=== PATIENT | female | born 2000 | race Caucasian/White ===

== ENCOUNTER 2024-06-27 13:06 | Outpatient (AMB) | payer BC, SELFPAY ==
--- NOTE | 2024-06-27 13:25 | MHC.PC.OV ---
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 Intake Note: New patient visit Street Engineer Required: No Allergies amoxicillin Allergy (Mild, Verified 06/27/24 13:29) Hives Medication List - Last Reconciled 06/27/24 by Sandra Trammell PA-C No Known Home Meds Tobacco use date assessed: 06/27/24 Dental Screening Dental Screen Date: 06/27/24 Did you have a dental visit in the last 12 months?: Yes Did you have a dental problem in the last 6 months where you did not have access to dental care?: No Was dental information given to patient?: Patient has dentist HPI BEHAVIORAL SCIENTIST Establish Care / Anxiety HPI Details Patient is a 23-year-old female who presents today to establish care. She is transferring from pediatrics. Pysch: She has a hx of anxiety of sertraline but it made her feel like a zombie. No SI/HI. She has never been hospitalized for anxiety or depression before. She does want to treat her anxiety as it bothers her almost every day and does cause some depressive symptoms. Social Staff Worker: Does not follow with a printing sign machine operator. Has never had a Pap smear. She is currently sexually active with a male partner and uses condoms. Declines STD screening or OCPs She is working at her father's [employer]. She also has a lima retriever puppy that is keeping her active and busy. She lives with a roommate. Requests a referral to Dermatology today. [facility] Surgical History (Updated 06/27/24 @ 13:31 by Rosario Ohara CMA) No pertinent past surgical history Family History (Updated 06/27/24 @ 13:31 by Rosario Ohara CMA) Maternal Grandmother HTN (hypertension) Diabetes Lung cancer Heart disease Other FH: mental illness Substance abuse Social History Housing: House Patient Tobacco Use Status: Never used Tobacco e-Cigarette/Vaping Use: Never Used service: No Current occupational status: employed Current occupation: Customer service Current occupational exposures/hazards: No Cognitive needs: No Hearing needs: No Vision needs: No Questionnaire PHQ-9 Over the last 2 weeks, how often have you been bothered by any of the following problems? 1. Little interest or pleasure in doing things: several days 2. Feeling down, depressed, or hopeless: several days 3. Trouble falling or staying asleep, or sleeping too much: several days 4. Feeling tired or having little energy: several days 5. Poor appetite or overeating: more than half the days 6. Feeling bad about yourself - or that you are a failure or have let yourself or your family down: several days 7. Trouble concentrating on things, such as reading the newspaper or watching television: several days 8. Moving or speaking so slowly that other people could have noticed. Or the opposite - being so fidgety or restless that you have been moving around a lot more than usual: several days 9. Thoughts that you would be better off or of hurting yourself in some way: several days Total score: 10 Depression Screening Interpretation: Positive Depression Screening Done: Yes 22242 - PHQ-9 Billing: Yes Source: Developed by Drs. Donnell Pabon, Kourtney Escobar, Roman Daly and colleagues, with an educational melvin from [employer]. Thrive Questionnaire Date Thrive assessed: 06/24/24 I am a: Patient What is your living situation today?: I have a steady place to live Within the past 12 months, did the food you bought not last and you didn't have the money to get more?: Never true Within the past 12 months, did you worry whether your food would run out before you got money to buy more?: Never true Do you have trouble paying for medicines?: No Do you have trouble getting transportation to medical appointments?: No Do you have trouble paying your heating and electricity bill?: No Do you have trouble taking care of your child, family member or friend?: No Do you have trouble with day-to-day activities such as bathing, preparing meals, shopping, managing finances, etc.?: No Are you currently unemployed and looking for a job?: No Are you interested in more education?: I choose not to answer this question Please select the resources that you would like help with: None Currently or been in a relationship where the following occur: No concerns reported THRIVE Score: 0 AUDIT C Alcohol Use Questionnaire (AUDIT-C) 2. How many drinks containing alcohol do you have on a typical day when you are drinking?: 3 or 4 3. How often do you have six or more drinks on one occasion?: Less than monthly Total Score: 2 MACKENZIE-7 AMB Questionnaire MACKENZIE-7 Date MACKENZIE - 7 assessed: 06/27/24 Feeling nervous, anxious, or on edge: 3 = Nearly every day Not being able to stop or control worryin = More than half the days Worrying too much about different things: 2 = More than half the days Trouble relaxin = Several days Being so restless that it is hard to sit still: 1 = Several days Becoming easily annoyed or irritable: 1 = Several days Feeling afraid as if something awful might happen: 1 = Several days Total MACKENZIE-7 score (0-4 normal; 5-9 mild; 10-14 moderate; 15-21 severe): 11 Source: Developed by Drs. Donnell Pabon, Kourtney Escobar, Roman Daly and colleagues, with an educational melvin from [employer]. MACKENZIE-7 Assessment Billing MACKENZIE-7 Assessment Tool: MACKENZIE-7 Assessment 13747 Physical exam (Primary Care) Vital Signs: Last Vital Signs Pulse 94 06/27/24 13:32 Resp 14 06/27/24 13:32 BP 100/72 06/27/24 13:32 Pulse Ox 99 06/27/24 13:32 Oxygen Delivery Method Room Air 06/27/24 13:32 BMI result Body Mass Index 18.9 Tobacco/Smoking Status: Tobacco use Status Tobacco use date assessed 06/27/24 06/27/24 13:27 Patient Tobacco Use Status Never used Tobacco 06/27/24 13:27 e-Cigarette/Vaping Use Never Used 06/27/24 13:27 PHQ-9: PHQ-9 Score PHQ-9: Total score 10 06/27/24 13:27 Depression Screening Interpretation: Positive Thrive Assessment: Date of Thrive Assessment Date Thrive assessed 06/24/24 06/27/24 13:27 Currently or been in a relationship where the following occur: No concerns reported Const Orientation/consciousness: patient oriented x3 HENMT Ears: hearing grossly normal bilaterally Neck Thyroid: Thyroid normal Lymphatic: no lymphadenopathy noted Resp Auscultation: clear to auscultation bilaterally Cardio Rate: regular rate Rhythm: regular rhythm Heart sounds: S1 normal heart sound present and S2 normal heart sound present GI Inspection: Yes normal to inspection Palpation (GI): Soft to palpation and Other GI palpation findings present (nontender, no cva tenderness) Auscultation: normoactive bowel sounds Rectal Exam - Female: deferred Skin General skin exam: no rashes or lesions noted Neuro General: patient oriented x3, gait normal and no focal motor deficits Coding Level of Care Code New Pt Level 3 (44432) Diagnoses Generalized anxiety disorder F41.1 Additional Codes MACKENZIE-7 Assessment Billing - MACKENZIE-7 Assessment Tool: MACKENZIE-7 Assessment 04351 ([id number]) PHQ-9 - 62307 - PHQ-9 Billing: Yes ([id number]) Assessment & Plan Assessment & Plan (1) Generalized anxiety disorder: Code(s): F41.1 - Generalized anxiety disorder Category: Medical Plan: We will start Lexapro. Discussed risks and benefits and adverse effects of this medication. I will have her follow up in 3-4 weeks. Sooner if needed. Labs ordered. Referral to gynecology placed. Orders: Orders TSH reflex Free T4 Today F41.1 - Generalized anxiety disorder Comprehensive Winston. 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
[2024-06-27 13:32] VITALS: BP 100/72; PULSE 94; RESP 14; O2SAT 99; BMI 18.9
== END 2024-06-27 14:09 | disposition home or self-care (01) ==
PROVIDERS: PCP Physician Assistant; Visit Provider Physician Assistant
DX: F41.1 Generalized anxiety disorder (principal)

== ENCOUNTER → 2024-06-27 13:06 | Outpatient (BNVA) | payer BC, SELFPAY | PROVIDERS: PCP Physician Assistant; Visit Provider Physician Assistant | DX: F41.1 Generalized anxiety disorder (principal) | CPT/HCPCS: 96127 ==

== ENCOUNTER 2024-07-09 12:46 | Outpatient (AMB) | payer BC, SELFPAY ==
--- NOTE | 2024-07-09 12:48 | MHC.OFFVIS ---
Vital Signs 07/09/24 12:55 Height 5 ft 5.5 in Weight 116 lb BMI 19.0 BP 107/64 Blood Pressure Location Lt brachial Position Sitting Respiration 16 Pulse 87 Pulse Source Pulse Oximeter Temp 97.7 F Temp Source Oral Pulse Oximetry (%) 99 Oxygen Delivery Method Room Air Intake Visit Reasons: Flu symptoms, pt of [facility] Intake Note: patient here c/o flu symptoms for a couple days. Gm/Svp Global Publisher Business Required: No Allergies amoxicillin Allergy (Mild, Verified 07/09/24 12:54) Hives Medication List - Last Reconciled 07/09/24 by Diana Landry CNP No Known Home Meds Is last menstrual period known: Yes Last menstrual period: 06/25/24 Post menopausal: No Do you need a note to return to daycare/school/sports/work: No HPI Comments Details: 23-year-old female presents with complaints of cold and flu-like symptoms for the past 2 weeks. He symptoms included headaches and persistent cough. She has been taking otc cold and flu medications. Her symptoms have significantly improved and feels better today. Her only symptom today is intermittent cough with [id number] mucus. She denies constitutional symptoms. [facility] Surgical History (Updated 06/27/24 @ 13:31 by Rosario Ohara CMA) No pertinent past surgical history Family History (Updated 06/27/24 @ 13:31 by Rosario Ohara CMA) Maternal Grandmother HTN (hypertension) Diabetes Lung cancer Heart disease Other FH: mental illness Substance abuse Social History Housing: House Patient Tobacco Use Status: Never used Tobacco e-Cigarette/Vaping Use: Never Used service: No Current occupational status: employed Current occupation: Customer service Current occupational exposures/hazards: No Cognitive needs: No Hearing needs: No Vision needs: No Female Reproductive History Menstrual Date of last menstrual period: 06/25/24 Review of Systems Const Details: Const Denies chills, Denies fatigue, Denies fever(s), Denies headache(s) and Denies weakness ENT Denies dizziness and Denies headache(s) Card Denies chest pain, Denies lightheadedness, Denies dyspnea and Denies other (Palpitations) Resp Reports cough, Denies dyspnea, Denies wheezing and Denies other ( shortness of breath) GI Denies abdominal pain, Denies melena, Denies hematochezia, Denies change in bowel habits, Denies dyspepsia and Denies nausea Denies hematuria and Denies dysuria Musc Denies abnormal gait, Denies myalgias, Denies arthralgias, Denies numbness and Denies tingling Skin/Breast Denies rash, Denies unusual bruising and Denies wounds Neuro Denies abnormal gait, Denies dizziness, Denies headache(s), Denies memory loss, Denies numbness, Denies Sensory deficit (Neuro), Denies tingling and Denies weakness Psych Denies anxiety, Denies depression, Denies memory loss Endo Denies cold intolerance, Denies fatigue, Denies heat intolerance, Denies polydipsia and Denies polyuria Aller/Immun Denies wheezing Physical Exam Const Other: General: no acute distress and well developed Nutritional Appearance: well nourished Orientation/consciousness: patient oriented x3 HENMT Head is normocephalic Bilateral ear canal and TM are normal Nasal turbinates and oropharynx are pink and moist Sinuses are nontender with palpation No auricular or cervical lymphadenopathy Eyes General: appearance normal, both eyes and all related structures Pupils: Equal, round and reactive pupils present EOM: EOMs intact bilaterally Resp Effort & Inspection: normal respiratory effort Auscultation: clear to auscultation bilaterally Cardio Rate: regular rate Rhythm: regular rhythm Heart sounds: S1 normal heart sound present, S2 normal heart sound present, no gallops, no murmurs and no rubs GI Palpation (GI): No Abdominal aortic bruit present, Soft to palpation, nontender, No hepatosplenomegaly present and No Rebound tenderness present Auscultation: normal bowel sounds General: Yes no CVA tenderness Back/Spine/Pelvis Back: no CVA tenderness Cervical Spine: cervical ROM normal and No Cervical spine tenderness Thoracic/Lumbar Spine: thoraco-lumbar ROM normal, No pain with thoraco-lumbar ROM, No thoracic spinal tenderness and No lumbar spinal tenderness Extrem General: Yes normal to inspection, No edema and No calf tenderness Skin General: warm and dry. Normal skin color. Normal skin turgor Neuro General: patient oriented x3, gait normal and no focal neuro deficit Cranial nerves: Yes Equal, round and reactive pupils present Cognition (Neuro): normal cognition Gait exam (Neuro): Normal gait present Sensory Exam: No Sensory deficit (Neuro) Psych Appearance: grossly normal Affect: normal affect Attitude: cooperative Thought process: Normal thought process present Assessment & Plan Assessment & Plan (1) Viral upper respiratory illness: Code(s): J06.9 - Acute upper respiratory infection, unspecified Category: Medical Plan: Likely viral illness though possibly allergies. No exam evidence of bacterial infection Viral illness There is no antibiotic medication for viruses.? They must run their course.? Most average 5-7 days but 7-10 days is not uncommon and up to 14 days is still possible.? A cough is often the last symptom to resolve and this can last for weeks in some cases. Rest Hydrate well -? Drink plenty of fluids.? Especially water. Tylenol or ibuprofen for muscle aches, headache, fever/discomfort May take an antihistamine such as Zyrtec or Claritin once daily if cough does not resolve. Return for new or worsening symptoms Verbalized understanding and agreed with treatment plan. Coding Level of Care Code Est Pt Level 3 (99052) Diagnoses Viral upper respiratory illness J06.9
[2024-07-09 12:55] VITALS: BP 107/64; PULSE 87; RESP 16; TEMP 36.5; O2SAT 99; BMI 19.0
== END 2024-07-09 13:21 | disposition home or self-care (01) ==
PROVIDERS: PCP Physician Assistant; Visit Provider Nurse Practitioner Family
DX: J06.9 Acute upper respiratory infection, unspecified (principal)

== ENCOUNTER → 2024-07-09 12:46 | Outpatient (BNVA) | payer BC, SELFPAY | PROVIDERS: PCP Physician Assistant; Visit Provider Nurse Practitioner Family ==

== ENCOUNTER 2024-07-31 08:23 | Outpatient (AMB) | payer BC, SELFPAY ==
--- NOTE | 2024-07-31 08:32 | A.OFFPC_ITS ---
Vital Signs 07/31/24 08:34 Height 5 ft 5.5 in Weight 120 lb 2 oz BMI 19.7 BP 96/64 Blood Pressure Location Lt brachial Position Sitting Respiration 14 Pulse 100 Pulse Source Pulse Oximeter Pulse Oximetry (%) 96 Oxygen Delivery Method Room Air Intake Visit Reasons: anxiety Intake Note: Anxiety follow up Allergies amoxicillin Allergy (Mild, Verified 07/09/24 12:54) Hives Medication List - Last Reconciled 07/31/24 by Sandra Trammell PA-C No Known Home Meds Tobacco use date assessed: 06/27/24 Dental Screening Dental Screen Date: 06/27/24 HPI anxiety HPI Details Patient is a 23-year-old female who presents today for a follow up. Pysch: She has a hx of anxiety of sertraline but it made her feel like a zombie. No SI/HI. She has never been hospitalized for anxiety or depression before. At our last visit I trialed her on Lexapro but she did not tolerate the medication. She had n/v. She states that she had to discontinue the Lexapro because of this. She states that she is hesitant to try something else. She is working at her father's [employer]. She also has a lima retriever puppy that is keeping her active and busy. She lives with a roommate. [facility] Surgical History (Updated 06/27/24 @ 13:31 by Rosario Ohara CMA) No pertinent past surgical history Family History (Updated 06/27/24 @ 13:31 by Rosario Ohara CMA) Maternal Grandmother HTN (hypertension) Diabetes Lung cancer Heart disease Other FH: mental illness Substance abuse Social History Housing: House Patient Tobacco Use Status: Never used Tobacco e-Cigarette/Vaping Use: Never Used service: No Current occupational status: employed Current occupation: Customer service Current occupational exposures/hazards: No Cognitive needs: No Hearing needs: No Vision needs: No Questionnaire PHQ-9 Over the last 2 weeks, how often have you been bothered by any of the following problems? 1. Little interest or pleasure in doing things: not at all 2. Feeling down, depressed, or hopeless: not at all 3. Trouble falling or staying asleep, or sleeping too much: not at all 4. Feeling tired or having little energy: not at all 5. Poor appetite or overeating: not at all 6. Feeling bad about yourself - or that you are a failure or have let yourself or your family down: not at all 7. Trouble concentrating on things, such as reading the newspaper or watching television: not at all 8. Moving or speaking so slowly that other people could have noticed. Or the opposite - being so fidgety or restless that you have been moving around a lot more than usual: not at all 9. Thoughts that you would be better off or of hurting yourself in some way: not at all Total score: 0 Depression Screening Interpretation: Negative Depression Screening Done: Yes 90183 - PHQ-9 Billing: Yes Source: Developed by Drs. Donnell Pabon, Kourtney Escobar, Roman Daly and colleagues, with an educational melvin from [employer]. Thrive Questionnaire Date Thrive assessed: 06/24/24 I am a: Patient What is your living situation today?: I have a steady place to live Within the past 12 months, did the food you bought not last and you didn't have the money to get more?: Never true Within the past 12 months, did you worry whether your food would run out before you got money to buy more?: Never true Do you have trouble paying for medicines?: No Do you have trouble getting transportation to medical appointments?: No Do you have trouble paying your heating and electricity bill?: No Do you have trouble taking care of your child, family member or friend?: No Do you have trouble with day-to-day activities such as bathing, preparing meals, shopping, managing finances, etc.?: No Are you currently unemployed and looking for a job?: No Are you interested in more education?: I choose not to answer this question Please select the resources that you would like help with: None Currently or been in a relationship where the following occur: No concerns reported THRIVE Score: 0 MACKENZIE-7 AMB Questionnaire MACKENZIE-7 Date MACKENZIE - 7 assessed: 06/27/24 Feeling nervous, anxious, or on edge: 1 = Several days Not being able to stop or control worryin = Several days Worrying too much about different things: 3 = Nearly every day Trouble relaxin = Not at all Being so restless that it is hard to sit still: 0 = Not at all Becoming easily annoyed or irritable: 0 = Not at all Feeling afraid as if something awful might happen: 0 = Not at all Total MACKENZIE-7 score (0-4 normal; 5-9 mild; 10-14 moderate; 15-21 severe): 5 Source: Developed by Drs. Donnell Pabon, Kourtney Escobar, Roman Daly and colleagues, with an educational melvin from [employer]. MACKENZIE-7 Assessment Billing MACKENZIE-7 Assessment Tool: MACKENZIE-7 Assessment 53718 Physical exam (Primary Care) Vital Signs: Last Vital Signs Pulse 100 07/31/24 08:34 Resp 14 07/31/24 08:34 BP 96/64 07/31/24 08:34 Pulse Ox 96 07/31/24 08:34 Oxygen Delivery Method Room Air 07/31/24 08:34 BMI result Body Mass Index 19.7 Tobacco/Smoking Status: Tobacco use Status Tobacco use date assessed 06/27/24 07/31/24 08:37 Patient Tobacco Use Status Never used Tobacco 07/31/24 08:37 e-Cigarette/Vaping Use Never Used 07/31/24 08:37 PHQ-9: PHQ-9 Score PHQ-9: Total score 0 07/31/24 08:37 Depression Screening Interpretation: Negative Thrive Assessment: Date of Thrive Assessment Date Thrive assessed 06/24/24 07/31/24 08:37 Currently or been in a relationship where the following occur: No concerns reported Const Orientation/consciousness: patient oriented x3 HENMT Ears: hearing grossly normal bilaterally Neck Thyroid: Thyroid normal Lymphatic: no lymphadenopathy noted Resp Auscultation: clear to auscultation bilaterally Cardio Rate: regular rate Rhythm: regular rhythm Heart sounds: S1 normal heart sound present and S2 normal heart sound present GI Inspection: Yes normal to inspection Palpation (GI): Soft to palpation and Other GI palpation findings present (nontender, no cva tenderness) Auscultation: normoactive bowel sounds Rectal Exam - Female: deferred Skin General skin exam: no rashes or lesions noted Neuro General: patient oriented x3, gait normal and no focal motor deficits Coding Level of Care Code Est Pt Level 3 (81034) Complex EM visit Add On G2211 Diagnoses Generalized anxiety disorder F41.1 Additional Codes MACKENZIE-7 Assessment Billing - MACKENZIE-7 Assessment Tool: MACKENZIE-7 Assessment 39463 ([id number]) PHQ-9 - 74901 - PHQ-9 Billing: Yes ([id number]) Assessment & Plan Assessment & Plan (1) Generalized anxiety disorder: Code(s): F41.1 - Generalized anxiety disorder Category: Medical Plan: We will start buspirone. Discussed risks and benefits and adverse effects of this medication. I will arrange for a short term follow up. She declined referral to Behavioral health. She will follow up sooner if needed. Patient understands and agrees with the plan. Medications: New buspirone 5 mg PO BID 60 tabs 3RF
[2024-07-31 08:34] VITALS: BP 96/64; PULSE 100; RESP 14; O2SAT 96; BMI 19.7
== END 2024-07-31 08:49 | disposition home or self-care (01) ==
LOC: HO.HMCFM 08:24
PROVIDERS: PCP Physician Assistant; Visit Provider Physician Assistant
DX: F41.1 Generalized anxiety disorder (principal)

== ENCOUNTER → 2024-07-31 08:23 | Outpatient (BNVA) | payer BC, SELFPAY | PROVIDERS: PCP Physician Assistant; Visit Provider Physician Assistant | DX: F41.1 Generalized anxiety disorder (principal) | CPT/HCPCS: 96127 ==